=== PATIENT | female | born 1955 | race Two or more races ===

== ENCOUNTER 2019-09-27 11:33 | Emergency (ER) | payer OTHER ==
[~2019-09-27] VITALS: Ht 157.5 cm; Wt 91.0 kg
[2019-09-27] MEDS ORDERED: DONE10TA11 PO (11:52)
[2019-09-27] MEDS ORDERED: AMLO10TA80 PO (11:52)
[2019-09-27] MEDS ORDERED: ACETAMINOPHEN 325MG TABLET PO ONE ×2 (12:30→15:45)
[2019-09-27 12:57] LABS: HEMATOCRIT. 43.8 % (36.0-48.0); HEMOGLOBIN. 14.6 g/dL (12.0-16.0); MEAN CORPUSCULAR HEMOGLOBIN 28.3 pg (28.0-32.0); MEAN PLATELET VOLUME 9.3 fl (7.4-10.4); PLATELET 216 x1000/uL (130-400); RED BLOOD CELL COUNT 5.16 mill/uL (4.2-5.4); RED CELL DISTRIBUTION WIDTH 15.1 % (11.6-14.6)
[2019-09-27] MEDS ORDERED: ONDANSETRON HCL 4MG/2ML INJ IV STA (13:03)
[2019-09-27] MEDS ORDERED: SODIUM CHLORIDE 0.9% 1,000 ML IV ONE (13:03)
[2019-09-27] MEDS ORDERED: MORPHINE SULFATE 4 MG/ML CPJ (NOT FOR IM USE) IV STA (13:03)
[2019-09-27 13:05] LABS: CHLORIDE 105 mEq/L (98-107)
[2019-09-27 13:17] LABS: PARTIAL THROMBOPLASTIN TIME 27.7 sec (23.4-31.0); PROTHROMBIN TIME 10.5 sec (9.6-11.0)
[2019-09-27 13:46] LABS: PLATELET ESTIMATE NORMAL
[2019-09-27 17:16] VITALS: BP 132/78
== END 2019-09-27 17:36 | disposition home or self-care (01) ==
LOC: ER 11:33
DX: J93.9 Pneumothorax, unspecified (principal); S27.329A Contusion of lung, unspecified, initial encounter; W01.0XXA Fall on same level from slipping, tripping and stumbling without subsequent striking against object, initial encounter; Y93.89 Activity, other specified; Y92.89 Other specified places as the place of occurrence of the external cause; Y99.8 Other external cause status
CPT/HCPCS: 36415; 71045; 71260; 74177; 80053; 83690; 85025; 85610; 85730; 86850; 86900; 86901; 93005; 96374; 96375; 99285; J2270; J2405; J7030